=== PATIENT | female | born 1945 | race Caucasian/White ===

== ENCOUNTER 2018-01-20 20:00 | Emergency (ER) | payer MEDICARE ==
[~2018-01-20] VITALS: Ht 157.5 cm; Wt 72.7 kg
[2018-01-20] MEDS ORDERED: LISI-662 PO (20:17)
[2018-01-20] MEDS ORDERED: QUET200T PO (20:17)
[2018-01-20] MEDS ORDERED: TRAZ-147 PO (20:17)
[2018-01-20] MEDS ORDERED: ESOM20CA31 PO (20:17)
[2018-01-20] MEDS ORDERED: GABA-531 PO (20:17)
[2018-01-20] MEDS ORDERED: SERT50TA12 PO (20:17)
[2018-01-20 20:41] LABS: BASOPHILS % (AUTO) 0.4 % (0.0-2.0); EOSINOPHILS % (AUTO) 0.6 % (1.0-6.0); HEMOGLOBIN 12.1 g/dL (12.0-16.0); LYMPHOCYTES # (AUTO) 1.8 K/uL (1.0-4.8); LYMPHOCYTES % (AUTO) 16.9 % (22.0-44.0); MEAN CORPUSCULAR HEMOGLOBIN 27.8 pg (26.0-34.0); MEAN CORPUSCULAR HGB CONC 33.6 G/dL (31.0-37.0); MEAN CORPUSCULAR VOLUME 83 fL (80-100); MONOCYTES # (AUTO) 0.7 K/uL (0.1-1.0); NEUTROPHILS # (AUTO) 7.9 K/uL (1.8-7.7); NEUTROPHILS % (AUTO) 75.1 % (40.0-70.0); PLATELET COUNT (AUTO) 257 K/uL (150-450); RED BLOOD CELL COUNT(AUTO) 4.34 MIL/uL (4.00-5.20); RED CELL DISTRIBUTION WIDTH 15.5 % (11.5-14.5)
[2018-01-20 20:56] LABS: ANION GAP 5 mmol/L (8-16); CALCIUM, TOTAL 9.2 mg/dL (8.8-10.5); CARBON DIOXIDE 31 mmol/L (22-29); CHLORIDE 105 mmol/L (98-107); CREATININE 0.77 mg/dL (0.60-1.30); GLOMERULAR FILTR. RATE CALC > 60 mL/min (>60); GLUCOSE,RANDOM 111 mg/dL (70-110); POTASSIUM 3.8 mmol/L (3.5-5.1); SODIUM SERUM 141 mmol/L (136-145); UREA NITROGEN, BLOOD 7 mg/dL (7-18)
[2018-01-20 21:00] LABS: ALANINE AMINOTRANSFERASE 20 U/L (12-78); ALBUMIN 3.8 g/dL (3.4-5.0); ALKALINE PHOSPHATASE 137 U/L (46-116); ASPARTATE AMINOTRANSFERASE 18 U/L (15-37); BILIRUBIN,TOTAL 0.2 mg/dL (0.1-1.0); TOTAL PROTEIN, SERUM 7.5 g/dL (6.4-8.2)
[2018-01-20 21:18] LABS: AMPHET/METH SCREEN,URINE NEGATIVE (NEGATIVE); BARBITURATE SCREEN, URINE NEGATIVE (NEGATIVE); BENZODIAZEPINES SCREEN,URINE NEGATIVE (NEGATIVE); CANNABINOID SCREEN,URINE NEGATIVE (NEGATIVE); COCAINE SCREEN,URINE NEGATIVE (NEGATIVE); METHADONE SCREEN, URINE NEGATIVE (NEGATIVE); OPIATE SCREEN,URINE NEGATIVE (NEGATIVE)
[2018-01-20 21:19] LABS: PHENCYCLIDINE SCREEN,URINE NEGATIVE (NEGATIVE)
[2018-01-20 22:10] LABS: LIPASE 165 U/L (73-393)
[2018-01-20 22:12] LABS: APPEARANCE,URINE CLEAR (CLEAR); BILIRUBIN,URINE NEGATIVE (NEGATIVE); GLUCOSE, URINE (UA) NEGATIVE (NEGATIVE); KETONES,URINE NEGATIVE (NEGATIVE); LEUKOCYTE ESTERASE ,URINE SMALL (NEGATIVE); NITRATE,URINE NEGATIVE (NEGATIVE); OCCULT BLOOD,URINE NEGATIVE (NEGATIVE); PH,URINE 7.5 (5.0-8.0); PROTEIN,URINE NEGATIVE (NEGATIVE); UROBILINOGEN,URINE 0.2 mg/dL (<=1.0)
[2018-01-20 22:21] LABS: BACTERIA,URINE Few /HPF (None Seen); RBC,URINE 0-2 /HPF (0-2); SQUAMOUS EPITHELIAL CELL,UR Few /LPF (None Seen)
[2018-01-21] MEDS ORDERED: GABAPENTIN 100 MG CAPSULE PO ONE (00:45)
[2018-01-21] MEDS ORDERED: IOVERSOL 350 MG/ML 150 ML VIAL ONE (01:13)
[2018-01-21] MEDS ORDERED: SODIUM CHLORIDE 0.9% 100 ML ONE (01:13)
[2018-01-21] MEDS ORDERED: KETOROLAC TROMETHAMINE 30 MG/ML VIAL IVP ONE (05:00)
[2018-01-21 05:42] VITALS: BP 152/94
== END 2018-01-21 07:05 | disposition home or self-care (01) ==
LOC: EMS 20:01
DX: K80.20 Calculus of gallbladder without cholecystitis without obstruction (principal); R91.1 Solitary pulmonary nodule; R51 Headache; K21.9 Gastro-esophageal reflux disease without esophagitis; I10 Essential (primary) hypertension
CPT/HCPCS: 36415; 71260; 72193; 74160; 80053; 80307; 81001; 83690; 84484; 85025; 87077; 87086; 87186; 96374; 99285; G0480; J1885; J7050; Q9967

== ENCOUNTER → 2018-04-30 | Outpatient (CLI) | payer MEDICARE ==
[~2018-04-30] VITALS: Ht 157.5 cm; Wt 71.5 kg
[~2018-04-30] MED LIST: ATOR40TA28 PO; ESOM20CA31 PO; GABA-531 PO; LISI-662 PO; QUET200T PO; SERT50TA12 PO; TRAZ-220 PO
[2018-04-30 09:27] VITALS: BP 148/80
== END | disposition home or self-care (01) ==
LOC: SRCNTR 09:21
PROVIDERS: ATTEND Hospitalist
DX: I10 Essential (primary) hypertension (principal); E78.5 Hyperlipidemia, unspecified; F31.9 Bipolar disorder, unspecified; M25.519 Pain in unspecified shoulder
CPT/HCPCS: G0463

== ENCOUNTER → 2018-04-30 | Outpatient (CLI) | payer MEDICARE, OTHER ==
[2018-04-30 12:15] LABS: EOSINOPHILS % (AUTO) 1.8 % (1.0-6.0); HEMATOCRIT 34.5 % (36-46); HEMOGLOBIN 11.5 g/dL (12.0-16.0); LYMPHOCYTES # (AUTO) 1.5 K/uL (1.0-4.8); LYMPHOCYTES % (AUTO) 28.7 % (22.0-44.0); MEAN CORPUSCULAR HGB CONC 33.4 G/dL (31.0-37.0); MEAN CORPUSCULAR VOLUME 81 fL (80-100); MONOCYTES # (AUTO) 0.4 K/uL (0.1-1.0); MONOCYTES % (AUTO) 8.4 % (2.0-9.0); NEUTROPHILS # (AUTO) 3.1 K/uL (1.8-7.7); NEUTROPHILS % (AUTO) 60.1 % (40.0-70.0); PLATELET COUNT (AUTO) 224 K/uL (150-450); RED BLOOD CELL COUNT(AUTO) 4.27 MIL/uL (4.00-5.20); RED CELL DISTRIBUTION WIDTH 15.9 % (11.5-14.5)
[2018-04-30 12:40] LABS: HEMOGLOBIN A1C 5.8 % (4.5-6.2)
[2018-04-30 12:53] LABS: ALANINE AMINOTRANSFERASE 18 U/L (12-78); ALBUMIN 3.6 g/dL (3.4-5.0); ALKALINE PHOSPHATASE 112 U/L (46-116); ANION GAP 5 mmol/L (8-16); ASPARTATE AMINOTRANSFERASE 11 U/L (15-37); BILIRUBIN,TOTAL 0.5 mg/dL (0.1-1.0); CALCIUM, TOTAL 9.4 mg/dL (8.8-10.5); CARBON DIOXIDE 28 mmol/L (22-29); CHLORIDE 103 mmol/L (98-107); CHOL/HDL RATIO 2.6 (3.9-5.7); CHOLESTEROL 194 mg/dL (131-200); CREATININE 0.69 mg/dL (0.60-1.30); GLUCOSE,RANDOM 91 mg/dL (70-110); HDL CHOLESTEROL 74 mg/dL (40-60); LDL CHOL (CALC.) 98 mg/dL (0-130); POTASSIUM 4.2 mmol/L (3.5-5.1); SODIUM SERUM 136 mmol/L (136-145); THYROID STIMULATING HORMONE 1.33 uIU/mL (0.36-3.74); TRIGLYCERIDES 108 mg/dL (15-150); UREA NITROGEN, BLOOD 5 mg/dL (7-18)
[2018-04-30 13:01] LABS: GLOMERULAR FILTR. RATE CALC > 60 mL/min (>60)
== END | disposition home or self-care (01) ==
LOC: LABPV 11:38
PROVIDERS: ATTEND Hospitalist
DX: I10 Essential (primary) hypertension (principal); M25.512 Pain in left shoulder; N76.0 Acute vaginitis; K21.9 Gastro-esophageal reflux disease without esophagitis; Z79.899 Other long term (current) drug therapy
CPT/HCPCS: 82271; 83036; 84443

== ENCOUNTER → 2018-05-07 | Outpatient (CLI) | payer MEDICARE, OTHER | END | disposition home or self-care (01) | LOC: RADMN 13:40 | PROVIDERS: ATTEND Hospitalist | DX: M62.89 Other specified disorders of muscle (principal); M25.512 Pain in left shoulder; I10 Essential (primary) hypertension; Z79.899 Other long term (current) drug therapy; K21.9 Gastro-esophageal reflux disease without esophagitis | CPT/HCPCS: 73221 ==

== ENCOUNTER → 2018-06-04 | Outpatient (CLI) | payer MEDICARE ==
[~2018-06-04] VITALS: Ht 157.5 cm; Wt 72.5 kg
[2018-06-04 09:28] VITALS: BP 128/89
== END | disposition home or self-care (01) ==
LOC: SRCNTR 09:26
PROVIDERS: ATTEND Hospitalist
DX: N76.0 Acute vaginitis (principal); M25.512 Pain in left shoulder; E78.5 Hyperlipidemia, unspecified; F31.9 Bipolar disorder, unspecified; K21.9 Gastro-esophageal reflux disease without esophagitis
CPT/HCPCS: G0463

== ENCOUNTER → 2018-08-06 | Outpatient (CLI) | payer MEDICARE, OTHER | END | disposition home or self-care (01) | LOC: RADPV 09:39 | PROVIDERS: ATTEND Hospitalist | DX: I08.1 Rheumatic disorders of both mitral and tricuspid valves (principal) | CPT/HCPCS: 93306; 93880 ==

== ENCOUNTER → 2018-08-06 | Outpatient (CLI) | payer MEDICARE ==
[~2018-08-06] VITALS: Ht 157.5 cm; Wt 72.0 kg
[2018-08-06 08:35] VITALS: BP 150/83
== END | disposition home or self-care (01) ==
LOC: SRCNTR 08:19
PROVIDERS: ATTEND Hospitalist
DX: I10 Essential (primary) hypertension (principal); E78.5 Hyperlipidemia, unspecified; M25.512 Pain in left shoulder; R55 Syncope and collapse; K21.9 Gastro-esophageal reflux disease without esophagitis
CPT/HCPCS: G0463

== ENCOUNTER → 2018-08-13 | Outpatient (CLI) | payer MEDICARE, OTHER ==
[~2018-08-13] VITALS: Ht 157.5 cm; Wt 69.5 kg
[2018-08-13 10:59] VITALS: BP 134/82
== END | disposition home or self-care (01) ==
LOC: SRCNTR 10:36
PROVIDERS: ATTEND Hospitalist
DX: I10 Essential (primary) hypertension (principal); E78.5 Hyperlipidemia, unspecified; K21.9 Gastro-esophageal reflux disease without esophagitis; G62.9 Polyneuropathy, unspecified; F31.9 Bipolar disorder, unspecified; M25.569 Pain in unspecified knee
CPT/HCPCS: G0463

== ENCOUNTER → 2018-12-17 | Outpatient (CLI) | payer MEDICARE, OTHER ==
[~2018-12-17] VITALS: Ht 157.5 cm; Wt 70.0 kg
[2018-12-17 09:12] VITALS: BP 140/78
== END | disposition home or self-care (01) ==
LOC: SRCNTR 08:06
PROVIDERS: ATTEND Hospitalist
DX: M16.11 Unilateral primary osteoarthritis, right hip (principal); E78.5 Hyperlipidemia, unspecified; I10 Essential (primary) hypertension; K21.9 Gastro-esophageal reflux disease without esophagitis; M54.5 Low back pain; M25.512 Pain in left shoulder
CPT/HCPCS: G0463

== ENCOUNTER 2022-06-11 16:06 | Inpatient (IN) | payer OTHER ==
[~2022-06-11] VITALS: Ht 157.5 cm; Wt 72.7 kg
[~2022-06-11 16:06] MED LIST changes: +GABA-1181 PO; -GABA-531 PO; -LISI-662 PO; +LISI-894 PO; -QUET200T PO; +SERT-158 PO; -SERT50TA12 PO; -TRAZ-220 PO; +TRAZ-257 PO
[2022-06-11 21:34] LABS: BASOPHILS % (AUTO) 0.8 % (0.0-2.0); HEMATOCRIT 30.1 % (36-46); HEMOGLOBIN 10.2 g/dL (12.0-16.0); LYMPHOCYTES # (AUTO) 1.6 K/uL (1.0-4.8); LYMPHOCYTES % (AUTO) 32.3 % (22.0-44.0); MEAN CORPUSCULAR HEMOGLOBIN 27.5 pg (26.0-34.0); MEAN CORPUSCULAR VOLUME 81 fL (80-100); MONOCYTES # (AUTO) 0.5 K/uL (0.1-1.0); MONOCYTES % (AUTO) 9.8 % (2.0-9.0); NEUTROPHILS # (AUTO) 2.8 K/uL (1.8-7.7); NEUTROPHILS % (AUTO) 55.1 % (40.0-70.0); PLATELET COUNT (AUTO) 229 K/uL (150-450); RED BLOOD CELL COUNT(AUTO) 3.73 MIL/uL (4.00-5.20); RED CELL DISTRIBUTION WIDTH 16.7 % (11.5-14.5)
[2022-06-11 21:45] LABS: ANION GAP 8 mmol/L (8-16); CALCIUM, TOTAL 9.5 mg/dL (8.8-10.5); CARBON DIOXIDE 27 mmol/L (22-29); CHLORIDE 101 mmol/L (98-107); CREATININE 0.84 mg/dL (0.60-1.30); GLUCOSE,RANDOM 92 mg/dL (70-110); POTASSIUM 3.8 mmol/L (3.5-5.1); SODIUM SERUM 136 mmol/L (136-145); UREA NITROGEN, BLOOD 10 mg/dL (7-18)
[2022-06-11 21:46] LABS: GLOMERULAR FILTR. RATE CALC > 60 mL/min (>60)
[2022-06-11 21:50] LABS: ALANINE AMINOTRANSFERASE 12 U/L (12-78); ALBUMIN 3.9 g/dL (3.4-5.0); ALKALINE PHOSPHATASE 100 U/L (46-116); ASPARTATE AMINOTRANSFERASE 15 U/L (15-37); BILIRUBIN,TOTAL 0.3 mg/dL (0.1-1.0); LIPASE 67 U/L (73-393)
[2022-06-11 21:53] LABS: LACTIC ACID 0.5 mmol/L (0.4-2.0)
[2022-06-11] MEDS ORDERED: ONDANSETRON HCL 4 MG/2 ML VIAL IVP ONE (22:30)
[2022-06-11] MEDS ORDERED: ACETAMINOPHEN 500 MG TABLET PO ONE (22:30)
[2022-06-11] MEDS ORDERED: SODIUM CHLORIDE 0.9% 100 ML ONE (23:14)
[2022-06-11] MEDS ORDERED: IOHEXOL 350 MG/ML 100 ML VIAL ONE (23:14)
[2022-06-12] MEDS ORDERED: DOCUSATE SODIUM 100 MG CAPSULE PO ONE (00:45)
[2022-06-12] MEDS ORDERED: ONDANSETRON HCL 4 MG/2 ML VIAL IVP PRN (01:15)
[2022-06-12 01:31] LABS: COVID AG,FIA SOURCE NASAL SWAB
[2022-06-12 01:50] LABS: APPEARANCE,URINE CLEAR (CLEAR); BILIRUBIN,URINE NEGATIVE (NEGATIVE); GLUCOSE, URINE (UA) NEGATIVE (NEGATIVE); KETONES,URINE NEGATIVE (NEGATIVE); LEUKOCYTE ESTERASE ,URINE TRACE (NEGATIVE); NITRATE,URINE NEGATIVE (NEGATIVE); OCCULT BLOOD,URINE NEGATIVE (NEGATIVE); PROTEIN,URINE NEGATIVE (NEGATIVE); UROBILINOGEN,URINE <=1.0 mg/dL (<=1.0)
[2022-06-12] MEDS: KETOROLAC TROMETHAMINE 15 MG/ML VIAL IVP PRN ×2 (01:57→18:54)
[2022-06-12 01:59] LABS: BACTERIA,URINE Rare /HPF (None Seen); RBC,URINE None Seen /HPF (0-2); SQUAMOUS EPITHELIAL CELL,UR Rare /LPF (None Seen); WBC,URINE 0-2 /HPF (0-5)
[2022-06-12 02:56] VITALS: BP 143/82
[2022-06-12] MEDS ORDERED: HEPARIN SODIUM,PORCINE 5,000 UNITS/ML VIAL SQ SCH (08:00)
[2022-06-12 08:06] VITALS: BP 134/78
[2022-06-12] MEDS: ESOMEPRAZOLE MAG TRIHYDRATE 20 MG CAPSULE PO SCH (10:06)
[2022-06-12] MEDS: ATORVASTATIN CALCIUM 40 MG TABLET PO SCH (10:06)
[2022-06-12] MEDS: GABAPENTIN 300 MG CAPSULE PO SCH ×3 (10:06→20:40)
[2022-06-12] MEDS: SERTRALINE HCL 50 MG TABLET PO SCH (10:06)
[2022-06-12] MEDS: RINGERS SOLUTION,LACTATED 1,000 ML IV SCH ×2 (10:07→18:57)
[2022-06-12] MEDS: LISINOPRIL 20 MG TABLET PO SCH (10:07)
[2022-06-12] MEDS: ACETAMINOPHEN 325 MG TABLET PO PRN (12:43)
[2022-06-12 13:45] LABS: APPEARANCE,URINE CLEAR (CLEAR); BILIRUBIN,URINE NEGATIVE (NEGATIVE); GLUCOSE, URINE (UA) NEGATIVE (NEGATIVE); KETONES,URINE NEGATIVE (NEGATIVE); LEUKOCYTE ESTERASE ,URINE MODERATE (NEGATIVE); NITRATE,URINE NEGATIVE (NEGATIVE); OCCULT BLOOD,URINE SMALL (NEGATIVE); PROTEIN,URINE NEGATIVE (NEGATIVE); SPECIFIC GRAVITIY, URINE 1.019 (1.003-1.030); UROBILINOGEN,URINE <=1.0 mg/dL (<=1.0)
[2022-06-12 13:51] LABS: BACTERIA,URINE Many /HPF (None Seen); WBC,URINE 26-50 /HPF (0-5)
[2022-06-12 13:52] LABS: OTHER CASTS, URINE WAXY CASTS 1+ /LPF (None Seen)
[2022-06-12 13:53] LABS: AMORPHOUS SEDIMENT,UR None Seen /LPF (None Seen)
[2022-06-12 20:26] VITALS: BP 127/82
[2022-06-12] MEDS: HEPARIN SODIUM,PORCINE 5,000 UNITS/ML VIAL SQ SCH (23:31)
[2022-06-13 04:40] VITALS: BP 120/76
[2022-06-13] MEDS ORDERED: SODIUM CHLORIDE 0.9% 250 ML IV ONE (05:00)
[2022-06-13] MEDS: AMPICILLIN SODIUM/SULBACTAM NA 1.5 GM in SODIUM CHLORIDE 0.9% 50 ML IV SCH ×3 (05:08→20:29)
[2022-06-13 06:37] LABS: BASOPHILS % (AUTO) 0.8 % (0.0-2.0); EOSINOPHILS % (AUTO) 2.5 % (1.0-6.0); HEMATOCRIT 34.2 % (36-46); HEMOGLOBIN 11.4 g/dL (12.0-16.0); LYMPHOCYTES # (AUTO) 1.2 K/uL (1.0-4.8); LYMPHOCYTES % (AUTO) 29.3 % (22.0-44.0); MEAN CORPUSCULAR HEMOGLOBIN 27.6 pg (26.0-34.0); MEAN CORPUSCULAR HGB CONC 33.2 G/dL (31.0-37.0); MEAN CORPUSCULAR VOLUME 83 fL (80-100); MONOCYTES # (AUTO) 0.4 K/uL (0.1-1.0); MONOCYTES % (AUTO) 10.6 % (2.0-9.0); NEUTROPHILS # (AUTO) 2.4 K/uL (1.8-7.7); NEUTROPHILS % (AUTO) 56.8 % (40.0-70.0); PLATELET COUNT (AUTO) 242 K/uL (150-450); RED BLOOD CELL COUNT(AUTO) 4.12 MIL/uL (4.00-5.20)
[2022-06-13 07:05] LABS: ANION GAP 9 mmol/L (8-16); CALCIUM, TOTAL 9.3 mg/dL (8.8-10.5); CARBON DIOXIDE 26 mmol/L (22-29); CHLORIDE 102 mmol/L (98-107); CREATININE 0.74 mg/dL (0.60-1.30); GLUCOSE,RANDOM 80 mg/dL (70-110); POTASSIUM 3.4 mmol/L (3.5-5.1); SODIUM SERUM 137 mmol/L (136-145); UREA NITROGEN, BLOOD 7 mg/dL (7-18)
[2022-06-13 07:07] LABS: ALBUMIN 3.6 g/dL (3.4-5.0); BILIRUBIN,DIRECT 0.1 mg/dL (0.00-0.20); BILIRUBIN,TOTAL 0.5 mg/dL (0.1-1.0); TOTAL PROTEIN, SERUM 6.7 g/dL (6.4-8.2)
[2022-06-13 07:10] LABS: GLOMERULAR FILTR. RATE CALC > 60 mL/min (>60)
[2022-06-13 07:43] VITALS: BP 132/80
[2022-06-13] MEDS: HEPARIN SODIUM,PORCINE 5,000 UNITS/ML VIAL SQ SCH ×2 (08:23→16:30)
[2022-06-13] MEDS: ATORVASTATIN CALCIUM 40 MG TABLET PO SCH (08:23)
[2022-06-13] MEDS: SERTRALINE HCL 50 MG TABLET PO SCH (08:23)
[2022-06-13] MEDS: LISINOPRIL 20 MG TABLET PO SCH (08:23)
[2022-06-13] MEDS: GABAPENTIN 300 MG CAPSULE PO SCH ×3 (08:23→20:29)
[2022-06-13] MEDS: ESOMEPRAZOLE MAG TRIHYDRATE 20 MG CAPSULE PO SCH (08:29)
[2022-06-13] MEDS ORDERED: MEBROFENIN TC99M/MCL ISOTOPE 1 EA INJ INJ ONE (10:55)
[2022-06-13] MEDS: RINGERS SOLUTION,LACTATED 1,000 ML IV SCH (12:22)
[2022-06-13 16:30] VITALS: BP 138/81
[2022-06-13 20:00] VITALS: BP 136/90
[2022-06-14] MEDS: ACETAMINOPHEN 325 MG TABLET PO PRN ×2 (01:08→20:09)
[2022-06-14 04:10] VITALS: BP 128/74
[2022-06-14] MEDS: AMPICILLIN SODIUM/SULBACTAM NA 1.5 GM in SODIUM CHLORIDE 0.9% 50 ML IV SCH ×3 (04:23→20:08)
[2022-06-14] MEDS: RINGERS SOLUTION,LACTATED 1,000 ML IV SCH ×2 (04:32)
[2022-06-14] MEDS ORDERED: RINGERS SOLUTION,LACTATED 1,000 ML IV ONE (06:45)
[2022-06-14 07:37] VITALS: BP 125/75
[2022-06-14] MEDS ORDERED: BUPIVACAINE 0.25%/EPI 1:200,000/PF 10 ML VIAL ONE ×2 (07:53)
[2022-06-14] MEDS ORDERED: SODIUM CHLORIDE 0.9% 1,000 ML ONE (07:54)
[2022-06-14] MEDS ORDERED: VANCOMYCIN HCL 1 GM/VIAL ONE (07:54)
[2022-06-14] MEDS: ESOMEPRAZOLE MAG TRIHYDRATE 20 MG CAPSULE PO SCH (09:00)
[2022-06-14] MEDS ORDERED: FentaNYL CITRATE PF 100 MCG/2 ML VIAL IVP PRN (09:15)
[2022-06-14] MEDS ORDERED: HYDROmorphone 2 MG/ML VIAL IVP PRN (09:15)
[2022-06-14] MEDS ORDERED: ACETAMINOPHEN 1000 MG/ISO-OSM 100 ML IV ONE ×3 (09:30→10:15)
[2022-06-14] MEDS ORDERED: SUGAMMADEX SODIUM 200 MG/2 ML VIAL IVP ONE (09:44)
[2022-06-14] MEDS: ATORVASTATIN CALCIUM 40 MG TABLET PO SCH (12:23)
[2022-06-14] MEDS: SERTRALINE HCL 50 MG TABLET PO SCH (12:23)
[2022-06-14] MEDS: HEPARIN SODIUM,PORCINE 5,000 UNITS/ML VIAL SQ SCH ×3 (12:23→16:33)
[2022-06-14] MEDS: LISINOPRIL 20 MG TABLET PO SCH (12:23)
[2022-06-14] MEDS: GABAPENTIN 300 MG CAPSULE PO SCH ×3 (12:23→20:08)
[2022-06-14] MEDS ORDERED: OxyCODONE HCL/ACETAMINOPHEN 5-325 MG TABLET PO PRN (14:45)
[2022-06-14 15:47] VITALS: BP 140/81
[2022-06-14] MEDS: OXYGEN THERAPY IH SCH (20:00)
[2022-06-14 20:24] VITALS: BP 148/88
[2022-06-15] MEDS: HEPARIN SODIUM,PORCINE 5,000 UNITS/ML VIAL SQ SCH ×2 (00:07→08:31)
[2022-06-15] MEDS: RINGERS SOLUTION,LACTATED 1,000 ML IV SCH (02:40)
[2022-06-15] MEDS: AMPICILLIN SODIUM/SULBACTAM NA 1.5 GM in SODIUM CHLORIDE 0.9% 50 ML IV SCH (05:10)
[2022-06-15 05:28] VITALS: BP 148/88
[2022-06-15] MEDS ORDERED: DEXAMETHASONE SOD PHOS 4 MG/ML VIAL IVP ONE (06:04)
[2022-06-15] MEDS ORDERED: KETOROLAC TROMETHAMINE 60 MG/2 ML VIAL IM ONE (06:04)
[2022-06-15] MEDS ORDERED: ONDANSETRON HCL 4 MG/2 ML VIAL IVP ONE (06:04)
[2022-06-15] MEDS ORDERED: PROPOFOL 1% 20 ML VIAL IVP ONE (06:04)
[2022-06-15] MEDS ORDERED: FentaNYL CITRATE PF 100 MCG/2 ML VIAL IVP ONE (06:04)
[2022-06-15] MEDS ORDERED: LIDOCAINE/PF 2% 5 ML VIAL IM ONE (06:04)
[2022-06-15] MEDS ORDERED: ROCURONIUM BROMIDE 10 MG/ML 5 ML VIAL IVP ONE (06:04)
[2022-06-15 08:24] VITALS: BP 154/83
[2022-06-15] MEDS: ESOMEPRAZOLE MAG TRIHYDRATE 20 MG CAPSULE PO SCH (08:30)
[2022-06-15] MEDS: GABAPENTIN 300 MG CAPSULE PO SCH (08:30)
[2022-06-15] MEDS: SERTRALINE HCL 50 MG TABLET PO SCH (08:30)
[2022-06-15] MEDS: ATORVASTATIN CALCIUM 40 MG TABLET PO SCH (08:30)
[2022-06-15] MEDS ORDERED: AMOX1TAB15 PO (08:37)
[2022-06-15] MEDS: LISINOPRIL 20 MG TABLET PO SCH (09:19)
[2022-06-15] MEDS: OXYGEN THERAPY IH SCH (09:20)
== END 2022-06-15 11:00 | disposition home or self-care (01) | DRG 419 ==
LOC: EMS 16:06 → 6S 06-12 02:12
PROVIDERS: ADMIT Internal Medicine; ATTEND Internal Medicine
PROC: 0FT44ZZ Resection of Gallbladder, Percutaneous Endoscopic Approach (ICD-10-PCS; principal; 2022-06-14 08:50)
DX: K80.61 Calculus of gallbladder and bile duct with cholecystitis, unspecified, with obstruction (principal); Z20.822 Contact with and (suspected) exposure to COVID-19; D64.9 Anemia, unspecified; E78.5 Hyperlipidemia, unspecified; F03.90 Unspecified dementia, unspecified severity, without behavioral disturbance, psychotic disturbance, mood disturbance, and anxiety; I10 Essential (primary) hypertension; K59.00 Constipation, unspecified; F32.A Depression, unspecified; K21.9 Gastro-esophageal reflux disease without esophagitis; Z98.82 Breast implant status; Z79.899 Other long term (current) drug therapy
CPT/HCPCS: 74177; 74183; 76700; 78226; 80048; 80053; 80076; 81001; 83605; 83690; 84484; 85025; 87081; 87086; 87186; 93005; 99285; A9537; J0131; J0295; J1100; J1644; J1885; J2405; J2704; J3010; J3370; J3490; J7030; J7050; J7120; Q9967

== ENCOUNTER 2023-07-23 15:03 | Emergency (ER) | payer OTHER ==
[~2023-07-23] VITALS: Ht 157.5 cm; Wt 77.3 kg
[~2023-07-23 15:03] MED LIST changes: +AMOX1TAB15 PO
[2023-07-23 15:10] VITALS: TEMP 99.2
[2023-07-23] MEDS ORDERED: SERT-162 PO (15:10)
[2023-07-23] MEDS ORDERED: ATOR40TA28 PO (15:10)
[2023-07-23] MEDS ORDERED: LOSA-382 PO (15:10)
[2023-07-23 16:00] LABS: BASOPHILS % (AUTO) 0.8 % (0.0-2.0); EOSINOPHILS % (AUTO) 3.3 % (1.0-6.0); HEMOGLOBIN 9.9 g/dL (12.0-16.0); LYMPHOCYTES # (AUTO) 1.6 K/uL (1.0-4.8); LYMPHOCYTES % (AUTO) 33.8 % (22.0-44.0); MEAN CORPUSCULAR HEMOGLOBIN 28.8 pg (26.0-34.0); MEAN CORPUSCULAR HGB CONC 34.1 G/dL (31.0-37.0); MEAN CORPUSCULAR VOLUME 84 fL (80-100); MONOCYTES # (AUTO) 0.6 K/uL (0.1-1.0); MONOCYTES % (AUTO) 11.9 % (2.0-9.0); NEUTROPHILS # (AUTO) 2.4 K/uL (1.8-7.7); NEUTROPHILS % (AUTO) 50.2 % (40.0-70.0); PLATELET COUNT (AUTO) 207 K/uL (150-450); RED BLOOD CELL COUNT(AUTO) 3.44 MIL/uL (4.00-5.20); WHITE BLOOD COUNT (AUTO) 4.7 K/uL (4.5-11.0)
[2023-07-23 16:07] LABS: ANION GAP 9 mmol/L (8-16); CALCIUM, TOTAL 9.1 mg/dL (8.8-10.5); CARBON DIOXIDE 26 mmol/L (22-29); CHLORIDE 106 mmol/L (98-107); CREATININE 0.72 mg/dL (0.60-1.30); GLOMERULAR FILTR. RATE CALC > 60 mL/min (>60); GLUCOSE,RANDOM 109 mg/dL (70-110); POTASSIUM 3.7 mmol/L (3.5-5.1); SODIUM SERUM 141 mmol/L (136-145); UREA NITROGEN, BLOOD 15 mg/dL (7-18)
[2023-07-23 16:10] LABS: B-TYPE NATRIURETIC PEPTIDE 25 pg/mL (0-100)
[2023-07-23 16:13] LABS: ALANINE AMINOTRANSFERASE 17 U/L (12-78); ALBUMIN 3.3 g/dL (3.4-5.0); ALKALINE PHOSPHATASE 173 U/L (46-116); ASPARTATE AMINOTRANSFERASE 16 U/L (15-37); BILIRUBIN,TOTAL 0.2 mg/dL (0.1-1.0); TOTAL PROTEIN, SERUM 6.5 g/dL (6.4-8.2)
[2023-07-23 16:15] LABS: TROPONIN I-HIGH SENSITIVITY 8 ng/L (<51)
[2023-07-23 16:30] VITALS: BP 160/78; PULSE 70; RESP 16
== END 2023-07-23 17:02 | disposition home or self-care (01) ==
LOC: EMS 15:03
DX: R60.0 Localized edema (principal); F32.A Depression, unspecified; I10 Essential (primary) hypertension; Z87.19 Personal history of other diseases of the digestive system; Z98.890 Other specified postprocedural states
CPT/HCPCS: 80053; 83880; 84484; 85025; 99283